=== PATIENT | male | born 1930 | race Two or more races ===

== ENCOUNTER 2017-05-26 02:54 | Emergency (ER) | payer SELFPAY ==
[~2017-05-26] VITALS: Ht 175.3 cm; Wt 91.0 kg
[2017-05-26 02:59] VITALS: BP 0/0
== END 2017-05-26 03:00 | disposition expired ==
LOC: ER 02:54
DX: I46.9 Cardiac arrest, cause unspecified (principal); E78.00 Pure hypercholesterolemia, unspecified; E11.9 Type 2 diabetes mellitus without complications
CPT/HCPCS: 31500; 31525; 92950; 99285